=== PATIENT | male | born 1975 | race Caucasian/White ===

== ENCOUNTER → 2023-08-14 08:32 | Outpatient (REF) | payer MEDICARE, OTHER, SELFPAY ==
[2023-08-14 10:19] LABS: % Basophils 0.3 % (0-2); % Eosinophils 0.2 % (0-6); % Immature Granulocytes 0.2 % (0-0.5); % Lymphocytes 80.7 % (20.5-51.1); % Monocytes 1.1 % (1.7-9.3); % Neutrophils 17.5 % (42.2-75.2); Absolute Basophils 0.1 10^3/uL (0-0.2); Absolute Eosinophils 0.1 10^3/uL (0-0.7); Absolute Immature Granulocytes 0.1 10^3/uL (0-0.05); Absolute Lymphocytes 30.9 10^3/uL (1.2-3.4); Absolute Monocytes 0.4 10^3/uL (0.1-0.6); Absolute Neutrophils 6.7 10^3/uL (1.4-6.5); Hematocrit 42.9 % (39.0-52.0); Hemoglobin 14.1 g/dL (13.0-18.0); Mean Corp Hgb Conc. 32.9 g/dL (33.0-37.0); Mean Corpuscular Hgb 28.6 pg (27.0-31.0); Mean Platelet Volume 12.8 fL (7.4-10.4); Nucleated Red Blood Cells % 0 % (-); Platelet Count 183 10^3/uL (130-400); Red Blood Cell Count 4.93 10^6/uL (4.70-6.10); Red Cell Dist. Width 15.5 % (11.5-14.5); White Blood Cell Count 38.3 10^3/uL (4.8-10.8)
[2023-08-14 10:22] LABS: Urine Albumin Negative (Neg - Trace); Urine Bilirubin Negative (Negative); Urine Character Clear (Clear); Urine Color Yellow; Urine Glucose Negative (Negative); Urine Ketone Negative (Negative); Urine Leukocyte Negative (Negative); Urine Nitrite Negative (Negative); Urine Occult Blood 2+ (Negative); Urine Specific Gravity 1.005 (<1.030); Urine Urobilinogen Negative (Neg - 1+)
[2023-08-14 10:40] LABS: Urine Bacteria Few (Negative); Urine Red Blood Cell 0-2 /HPF (0-2); Urine Squamous Cell 0-2 /LPF (Few); Urine White Cell 0-2 /HPF (0-5)
[2023-08-14 11:32] LABS: Microalbumin, Random Urine <0.6 mg/dl (0.6-1.7)
[2023-08-14 11:58] LABS: Glycohemoglobin (HgbA1c) 5.8 % (4.0-5.6)
[2023-08-14 12:37] LABS: ALT (SGPT) 27 U/L (0-50); AST (SGOT) 19 U/L (17-59); Albumin 4.6 g/dl (3.5-5.0); Alkaline Phosphatase 98 U/L (38-126); Blood Urea Nitrogen 18 mg/dl (9-20); Calcium 9.9 mg/dl (8.4-10.2); Carbon Dioxide 25 mmol/L (22-30); Chloride 105 mmol/L (98-107); Glucose 107 mg/dl (70-99); HDL Cholesterol 39 mg/dl; LDL Cholesterol, Calculated 108 mg/dl; Potassium 4.5 mmol/L (3.5-5.1); Sodium 144 mmol/L (135-145); Total Bilirubin 0.5 mg/dl (0.2-1.3); Total Cholesterol 164 mg/dl (50-199); Total Protein 7.1 g/dl (6.3-8.2); Triglyceride 88 mg/dl (10-149); Very Low Density Lipoprotein 17 mg/dl (0-30); eGFR > 60.00
[2023-08-14 12:49] LABS: Free T4 1.35 ng/dl (0.78-2.19); Vitamin D, 25-OH*** 39.8 ng/mL (30-80)
[2023-08-14 13:20] LABS: TSH 2.05 uIU/ml (0.47-4.68)
== END ==
LOC: REG 08:32
PROVIDERS: ATTENDING PHYSICIAN Internal Medicine Hematology & Oncology; FAMILY PHYSICIAN Family Medicine
DX: C91.10 Chronic lymphocytic leukemia of B-cell type not having achieved remission (principal); D50.9 Iron deficiency anemia, unspecified; E03.9 Hypothyroidism, unspecified; E55.9 Vitamin D deficiency, unspecified; E11.40 Type 2 diabetes mellitus with diabetic neuropathy, unspecified; E11.42 Type 2 diabetes mellitus with diabetic polyneuropathy
CPT/HCPCS: 36415; 80053; 80061; 81003; 81015; 82043; 82306; 82570; 83036; 84439; 84443; 85025

== ENCOUNTER → 2023-08-24 15:47 | Outpatient (REF) | payer MEDICARE, OTHER, SELFPAY ==
[2023-08-24 19:49] LABS: Urine Albumin Negative (Neg - Trace); Urine Bilirubin Negative (Negative); Urine Character Clear (Clear); Urine Color Yellow; Urine Glucose Negative (Negative); Urine Ketone Negative (Negative); Urine Leukocyte Negative (Negative); Urine Nitrite Negative (Negative); Urine Occult Blood Negative (Negative); Urine Urobilinogen Negative (Neg - 1+)
== END ==
LOC: REG 15:47
PROVIDERS: ATTENDING PHYSICIAN Family Medicine
DX: R82.90 Unspecified abnormal findings in urine (principal)
CPT/HCPCS: 81003; 87086

== ENCOUNTER → 2023-10-12 10:29 | Outpatient (REF) | payer MEDICARE, OTHER, SELFPAY ==
[2023-10-12 18:45] LABS: Urine Albumin Negative (Neg - Trace); Urine Bilirubin Negative (Negative); Urine Character Clear (Clear); Urine Color Yellow; Urine Glucose Negative (Negative); Urine Ketone Negative (Negative); Urine Leukocyte Negative (Negative); Urine Nitrite Negative (Negative); Urine Occult Blood Negative (Negative); Urine Urobilinogen Negative (Neg - 1+); Urine pH 6.5 (5.0-9.0)
== END ==
LOC: CLAB 10:29
PROVIDERS: ATTENDING PHYSICIAN Nurse Practitioner Family
DX: R35.0 Frequency of micturition (principal)
CPT/HCPCS: 81003; 87086

== ENCOUNTER 2023-11-03 16:52 | Emergency (ER) | payer MEDICARE, OTHER, SELFPAY ==
[2023-11-03] VITALS (16 sets, daily range): BP systolic 110–133; BP diastolic 69–86
[2023-11-03 17:35] LABS: Hematocrit 32.6 % (39.0-52.0); Hemoglobin 10.3 g/dL (13.0-18.0); Mean Corp Hgb Conc. 31.6 g/dL (33.0-37.0); Mean Corpuscular Volume 88.6 fL (80.0-94.0); Mean Platelet Volume 11.3 fL (7.4-10.4); Platelet Count 327 10^3/uL (130-400); Red Blood Cell Count 3.68 10^6/uL (4.70-6.10); White Blood Cell Count 27.8 10^3/uL (4.8-10.8)
[2023-11-03 17:41] LABS: ALT (SGPT) 22 U/L (0-50); AST (SGOT) 16 U/L (17-59); Albumin 3.8 g/dl (3.5-5.0); Alkaline Phosphatase 131 U/L (38-126); Blood Urea Nitrogen 14 mg/dl (9-20); Calcium 9.4 mg/dl (8.4-10.2); Carbon Dioxide 26 mmol/L (22-30); Chloride 103 mmol/L (98-107); Glucose 116 mg/dl (70-99); Potassium 3.9 mmol/L (3.5-5.1); Sodium 137 mmol/L (135-145); Total Bilirubin 0.8 mg/dl (0.2-1.3); Total Protein 6.1 g/dl (6.3-8.2); eGFR > 60.00
--- NOTE | 2023-11-03 17:53 | ED.MUSCINJ ---
HPI-Injury
<Primitivo Mixon PA-C - Last Filed: 11/03/23 20:04>
General
Chief Complaint: Musculo-Skeletal Complaint
Source: patient
Exam Limitations: none
Time Seen by Provider: 11/03/23 17:44
History of Present Illness-Injury
Initial Injury comments:
48-year-old male with history of CLL presents with pain to the right hip. He felt a pop in his right hip today while sitting in the wheelchair. He thinks he dislocated his hip again. 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
He is due to see his orthopedic surgeon in 2 days. He denies pain without moving currently. No other complaints at this time
Past History
<Primitivo Mixon PA-C - Last Filed: 11/03/23 20:04>
Past History
ED Past Medical History: Cancer (Skin cancer, melanoma, CLL), NIDDM, Psychiatric (Schizophrenia, anxiety, ECT) and Other (Pneumothorax, CLL)
ED Past Surgical History: Other
Social History
Tobacco: Non-smoker
Alcohol: None
Employment: Disabled
Phy Exam
<PATRICIO Drummond Last Filed: 11/03/23 20:04>
Physical Exam
Physical Exam:
General: Chronically ill-appearing male no respiratory distress
HEENT: Normocephalic atraumatic
Musculoskeletal exam: Right leg is shortened and externally rotated
Neurologic: Alert and oriented no facial asymmetry
Injury Course
<PATRICIO Drummond Last Filed: 11/03/23 20:04>
Orders/Labs/Results
Orders:
Orders
11/03/23 17:00
Complete Blood Count/With Diff Urgent
Comprehensive Metabolic Panel Urgent
11/03/23 17:52
CR Hip - RT without Pel 1 Vw Urgent
Comment:
Reason For Exam: dislocation
11/03/23 18:33
Propofol [Diprivan] 20 ml .ROUTE .STK-MED
11/03/23 18:50
Hip, Right 1 View [CR Hip - RT without Pel 1 Vw] Urgent
Comment: portable
Reason For Exam: reduction
11/03/23 20:05
Mirtazapine [Remeron] 45 mg PO NOW STA
Abnormal Lab Results
11/03/23
17:00
WBC 27.8 H 10^3/uL
(4.8-10.8)
RBC 3.68 L 10^6/uL
(4.70-6.10)
Hgb 10.3 L g/dL
(13.0-18.0)
Hct 32.6 L %
(39.0-52.0)
MCHC 31.6 L g/dL
(33.0-37.0)
RDW 17.0 H %
(11.5-14.5)
MPV 11.3 H fL
(7.4-10.4)
Abs Immat Gran (auto) 0.1 H 10^3/uL
(0-0.05)
Absolute Neuts (auto) 7.9 H 10^3/uL
(1.4-6.5)
Absolute Lymphs (auto) 19.1 H 10^3/uL
(1.2-3.4)
Neutrophils % 28.4 L %
(42.2-75.2)
Lymphocytes % 68.9 H %
(20.5-51.1)
Glucose 116 H mg/dl
(70-99)
AST 16 L U/L
(17-59)
Alkaline Phosphatase 131 H U/L
(38-126)
Total Protein 6.1 L g/dl
(6.3-8.2)
11/03/23 17:00
11/03/23 17:00
<Ash Edwards MD - Last Filed: 11/03/23 23:13>
Orders/Labs/Results
Orders:
Orders
11/03/23 17:00
Complete Blood Count/With Diff Urgent
Comprehensive Metabolic Panel Urgent
11/03/23 17:52
CR Hip - RT without Pel 1 Vw Urgent
Comment:
Reason For Exam: dislocation
11/03/23 18:33
Propofol [Diprivan] 20 ml .ROUTE .STK-MED
11/03/23 18:50
Hip, Right 1 View [CR Hip - RT without Pel 1 Vw] Urgent
Comment: portable
Reason For Exam: reduction
11/03/23 20:05
Mirtazapine [Remeron] 45 mg PO NOW STA
Abnormal Lab Results
11/03/23
17:00
WBC 27.8 H 10^3/uL
(4.8-10.8)
RBC 3.68 L 10^6/uL
(4.70-6.10)
Hgb 10.3 L g/dL
(13.0-18.0)
Hct 32.6 L %
(39.0-52.0)
MCHC 31.6 L g/dL
(33.0-37.0)
RDW 17.0 H %
(11.5-14.5)
MPV 11.3 H fL
(7.4-10.4)
Abs Immat Gran (auto) 0.1 H 10^3/uL
(0-0.05)
Absolute Neuts (auto) 7.9 H 10^3/uL
(1.4-6.5)
Absolute Lymphs (auto) 19.1 H 10^3/uL
(1.2-3.4)
Neutrophils % 28.4 L %
(42.2-75.2)
Lymphocytes % 68.9 H %
(20.5-51.1)
Glucose 116 H mg/dl
(70-99)
AST 16 L U/L
(17-59)
Alkaline Phosphatase 131 H U/L
(38-126)
Total Protein 6.1 L g/dl
(6.3-8.2)
11/03/23 17:00
11/03/23 17:00
Procedures
<Primitivo Mixon PA-C - Last Filed: 11/03/23 20:04>
Moderate Sedation
ASA Risk Score: Class II
Chart and allergies reviewed: Yes
Consent for anesthesia obtained: Yes
Time out completed (validating right patient & procedure): Yes
Moderate Sedation Start Time(when first medication is given): 18:45
History of difficult intubation: No
Airway free of obstruction: Yes
Patient has a gag reflex: Yes
Patient is able to open mouth: Yes
Patient has no dentures: Yes
Patient has no loose teeth: Yes
Medication administered by Provider during Moderate Sedation: IV Propofol (mg)
Total dose administered: 100
Time drug administered: 18:45
Moderate Sedation Procedure End Time: 18:56
Comment: Sedation performed by emergency room attending, Tad Edwards.
<Primitivo Mixon PA-C - Last Filed: 11/03/23 20:04>
MDM/Problems Addressed
Differential Diagnosis Includes:
Right hip pain with deformity. Question fracture versus dislocation. X-rays pending.
<PATRICIO Drummond Last Filed: 11/03/23 20:04>
*Critical Care Note
Total Time (30-74mins, 75-104mins- exclusive of procedures): Not Applicable
<Primitivo Mixon PA-C - Last Filed: 11/03/23 20:04>
Update Note
Update Note:
initial x-rays confirm right hip dislocation as superior and lateral. Discussed findings with patient and mother in the room. Answered all questions. Written consent obtained for moderate sedation and closed reduction of the right hip
Sedation performed by emergency room attending and reduction performed by myself using longitudinal traction hip flexion and internal rotation.
Postreduction films confirm successful reduction. Patient placed in knee immobilizer and back into his hip abduction pillow
Patient recovered well from sedation and will be discharged back to rehab facility. He has an appointment with his surgeon in 2 days
ED Attending Note
<Primitivo Mixon PA-C - Last Filed: 11/03/23 20:04>
-
Portions of this chart may have been created with voice recognition software.� Occasional wrong word or��sound alike� substitutions may have occurred due to the inherent limitations of voice recognition software.
<Ash Edwards MD - Last Filed: 11/03/23 23:13>
ED Attending Note
Patient seen and examined by attending physician: Yes
ED Attending Note:
I have seen and evaluated the patient with a [id number] encounter. I have spoken to the advance practicer provider and involved in the medical history, the physical exam, medical decision making.
Evaluation and management service: agree unless noted differently below.
Results interpretation: agree unless noted differently below.
Focused HPI: 48-year-old male with history as documented presents to the emergency room for evaluation of right hip injury. He had a recent right hip replacement and has had multiple dislocations since. He has been staying in rehab. He was
wheeling a wheelchair and caught his leg on another chair and felt his right hip pop and had immediate pain. Brought to the emergency room for evaluation.
Physical exam: Vitals normal. Right hip is shortened and externally rotated. Trace edema on the ankle. Strong right DP pulse with good distal perfusion, motor and sensory function intact distally.
Medical Decision Making: X-ray shows prosthetic hip dislocation. Reduced under moderate sedation as documented in procedure note. Discharged back to rehab.
Discharge Plan
Departure
Patient Disposition: Acute Rehab Facility
Date of Disposition: 11/03/23
Time of Disposition: 20:03
Patient with high blood pressure during this ER visit?: No
Discharge Problem:
Dislocation, hip
Instructions: Muscle and Bone Pain (DC), MODERATE SEDATION ADULT
Prescriptions:
No Action
mirtazapine 15 MG tablet
15 mg PO HS
Haldol:
100 mg IM MONTHLY
Patient Comments:
EVERY 30 DAYS
metformin 500 MG tablet
500 mg PO DAILY
clonazepam 0.5 MG tablet
0.5 mg PO PRN PRN (Reason: ANXIETY)
cyanocobalamin (vitamin B-12) 1,000 MCG tablet
1,000 mcg PO DAILY
levothyroxine 88 MCG tablet
88 mcg PO DAILY AT 0700
venlafaxine 75 mg Tablet
75 mg PO DAILY
olanzapine 15 mg Tablet
15 mg PO HS
multivitamin Tablet
1 tab PO DAILY
ketorolac 10 mg tablet
10 mg PO Q6H PRN (Reason: pain) Qty: 20 0RF
oxycodone 5 mg tablet
5 mg PO Q4H PRN (Reason: pain) Qty: 20 0RF
Referrals:
Kelvin Brooke MD [Family Provider] -
Activity Restrictions/Additional Instructions:
Please follow-up with your surgeon as planned in 2 days. Wear the knee immobilizer. Return for worsening symptoms otherwise
Interventions
Interventions:
*General Assessment Last Done: 11/03/23 16:58
*Neglect/Abuse Screening Last Done: 11/03/23 16:58
*Nursing Disposition Last Done: 11/03/23 22:22
ED-Musculoskeletal Assessment Last Done: 11/03/23 17:06
Discharge Date and Time
Discharge Date/Time: 11/03/23 22:24
Print Language: PALESTINIAN
[2023-11-03 17:54] LABS: % Basophils 0.2 % (0-2); % Eosinophils 0.1 % (0-6); % Immature Granulocytes 0.3 % (0-0.5); % Lymphocytes 68.9 % (20.5-51.1); % Monocytes 2.1 % (1.7-9.3); % Neutrophils 28.4 % (42.2-75.2); Absolute Basophils 0.1 10^3/uL (0-0.2); Absolute Immature Granulocytes 0.1 10^3/uL (0-0.05); Absolute Lymphocytes 19.1 10^3/uL (1.2-3.4); Absolute Monocytes 0.6 10^3/uL (0.1-0.6); Absolute Neutrophils 7.9 10^3/uL (1.4-6.5); Nucleated Red Blood Cells % 0 % (-)
[2023-11-03] MEDS: REMERON 45 MG PO (20:24)
== END 2023-11-03 22:24 ==
LOC: EMR 16:52
PROVIDERS: EMERGENCY PHYSICIAN Emergency Medicine; FAMILY PHYSICIAN Internal Medicine
DX: T84.020A Dislocation of internal right hip prosthesis, initial encounter (principal); Y79.2 Prosthetic and other implants, materials and accessory orthopedic devices associated with adverse incidents; C91.10 Chronic lymphocytic leukemia of B-cell type not having achieved remission; E11.9 Type 2 diabetes mellitus without complications; F20.9 Schizophrenia, unspecified; F41.9 Anxiety disorder, unspecified; Z85.820 Personal history of malignant melanoma of skin; Z85.828 Personal history of other malignant neoplasm of skin
CPT/HCPCS: 99283; 27266; 73501; 80053; 85025

== ENCOUNTER → 2024-02-19 08:43 | Outpatient (REF) | payer MEDICARE, OTHER, SELFPAY ==
[2024-02-19 09:41] LABS: Urine Albumin Negative (Neg - Trace); Urine Bilirubin Negative (Negative); Urine Character Clear (Clear); Urine Color Straw; Urine Glucose Negative (Negative); Urine Ketone Negative (Negative); Urine Leukocyte Negative (Negative); Urine Nitrite Negative (Negative); Urine Occult Blood Negative (Negative); Urine Specific Gravity 1.005 (<1.030); Urine Urobilinogen Negative (Neg - 1+)
[2024-02-19 10:00] LABS: Hematocrit 43.8 % (39.0-52.0); Hemoglobin 13.5 g/dL (13.0-18.0); Mean Corp Hgb Conc. 30.8 g/dL (33.0-37.0); Mean Corpuscular Hgb 26.2 pg (27.0-31.0); Mean Corpuscular Volume 84.9 fL (80.0-94.0); Mean Platelet Volume 11.3 fL (7.4-10.4); Platelet Count 167 10^3/uL (130-400); Red Blood Cell Count 5.16 10^6/uL (4.70-6.10); Red Cell Dist. Width 17.9 % (11.5-14.5)
[2024-02-19 10:04] LABS: ALT (SGPT) 24 U/L (0-50); AST (SGOT) 16 U/L (17-59); Albumin 4.5 g/dl (3.5-5.0); Alkaline Phosphatase 93 U/L (38-126); Blood Urea Nitrogen 17 mg/dl (9-20); Calcium 9.6 mg/dl (8.4-10.2); Carbon Dioxide 30 mmol/L (22-30); Chloride 104 mmol/L (98-107); Glucose 103 mg/dl (70-99); Glycohemoglobin (HgbA1c) 5.8 % (4.0-5.6); HDL Cholesterol 42 mg/dl; LDH 155 U/L (120-246); LDL Cholesterol, Calculated 108 mg/dl; Potassium 4.6 mmol/L (3.5-5.1); Sodium 143 mmol/L (135-145); Total Bilirubin 0.4 mg/dl (0.2-1.3); Total Cholesterol 167 mg/dl (50-199); Total Protein 6.8 g/dl (6.3-8.2); Triglyceride 88 mg/dl (10-149); Very Low Density Lipoprotein 17 mg/dl (0-30); eGFR > 60.00
[2024-02-19 10:36] LABS: TSH Reflex To Free T4 1.88 uIU/ml (0.47-4.68)
[2024-02-19 10:50] LABS: Microalbumin, Random Urine <0.6 mg/dl (0.6-1.7)
[2024-02-19 11:14] LABS: % Basophils 0.3 % (0-2); % Eosinophils 0.2 % (0-6); % Immature Granulocytes 0.2 % (0-0.5); % Lymphocytes 73.9 % (20.5-51.1); % Monocytes 1.4 % (1.7-9.3); Absolute Basophils 0.1 10^3/uL (0-0.2); Absolute Eosinophils 0.1 10^3/uL (0-0.7); Absolute Immature Granulocytes 0.1 10^3/uL (0-0.05); Absolute Lymphocytes 15.5 10^3/uL (1.2-3.4); Absolute Monocytes 0.3 10^3/uL (0.1-0.6); Nucleated Red Blood Cells % 0 % (-)
[2024-02-21 00:15] LABS: IgG 789 mg/dl (700-1600)
== END ==
LOC: REG 08:43
PROVIDERS: ATTENDING PHYSICIAN Internal Medicine Hematology & Oncology; FAMILY PHYSICIAN Dermatology; OTHER PHYSICIAN Registered Nurse; REFERRING PHYSICIAN Family Medicine
DX: Z79.899 Other long term (current) drug therapy (principal); E78.5 Hyperlipidemia, unspecified; Z04.6 Encounter for general psychiatric examination, requested by authority; Z13.29 Encounter for screening for other suspected endocrine disorder; R73.09 Other abnormal glucose; Z85.820 Personal history of malignant melanoma of skin; C91.10 Chronic lymphocytic leukemia of B-cell type not having achieved remission; D50.9 Iron deficiency anemia, unspecified; E03.9 Hypothyroidism, unspecified; F20.9 Schizophrenia, unspecified; E11.69 Type 2 diabetes mellitus with other specified complication
CPT/HCPCS: 36415; 80053; 80061; 81003; 82043; 82570; 82784; 83036; 83615; 84443; 85025

== ENCOUNTER → 2024-08-07 08:30 | Outpatient (REF) | payer MEDICARE, OTHER, SELFPAY ==
[2024-08-07 10:12] LABS: Glycohemoglobin (HgbA1c) 5.7 % (4.0-5.6)
[2024-08-07 10:44] LABS: Microalbumin, Random Urine <0.6 mg/dl (0.6-1.7)
[2024-08-07 10:47] LABS: ALT (SGPT) 27 U/L (0-50); AST (SGOT) 16 U/L (17-59); Albumin 4.6 g/dl (3.5-5.0); Alkaline Phosphatase 88 U/L (38-126); Blood Urea Nitrogen 18 mg/dl (9-20); Calcium 9.6 mg/dl (8.4-10.2); Carbon Dioxide 27 mmol/L (22-30); Chloride 110 mmol/L (98-107); Glucose 135 mg/dl (70-99); HDL Cholesterol 37 mg/dl; LDL Cholesterol, Calculated 103 mg/dl; Potassium 4.2 mmol/L (3.5-5.1); Sodium 144 mmol/L (135-145); Total Bilirubin 0.6 mg/dl (0.2-1.3); Total Cholesterol 155 mg/dl (50-199); Triglyceride 79 mg/dl (10-149); Very Low Density Lipoprotein 15 mg/dl (0-30); eGFR > 60.00
[2024-08-07 10:57] LABS: Vitamin D, 25-OH*** 58.5 ng/mL (30-80)
[2024-08-07 11:10] LABS: TSH 1.41 uIU/ml (0.47-4.68)
== END ==
LOC: REG 08:30
PROVIDERS: ATTENDING PHYSICIAN Family Medicine
DX: E03.9 Hypothyroidism, unspecified (principal); C91.10 Chronic lymphocytic leukemia of B-cell type not having achieved remission; F20.9 Schizophrenia, unspecified; E11.69 Type 2 diabetes mellitus with other specified complication; F33.0 Major depressive disorder, recurrent, mild; E11.610 Type 2 diabetes mellitus with diabetic neuropathic arthropathy; E11.40 Type 2 diabetes mellitus with diabetic neuropathy, unspecified; E55.9 Vitamin D deficiency, unspecified; M14.60 Charcot's joint, unspecified site; G47.33 Obstructive sleep apnea (adult) (pediatric); Z99.89 Dependence on other enabling machines and devices; E78.5 Hyperlipidemia, unspecified
CPT/HCPCS: 36415; 80053; 80061; 82043; 82306; 82570; 83036; 84443

== ENCOUNTER → 2024-08-12 11:35 | Outpatient (REF) | payer MEDICARE, OTHER, SELFPAY | LOC: RAD 11:35 | PROVIDERS: ATTENDING PHYSICIAN Internal Medicine Infectious Disease; FAMILY PHYSICIAN Family Medicine | DX: M86.071 Acute hematogenous osteomyelitis, right ankle and foot (principal) | CPT/HCPCS: 73620 ==

== ENCOUNTER → 2024-08-27 10:21 | Outpatient (REF) | payer MEDICARE, OTHER, SELFPAY ==
[2024-08-27 12:20] LABS: Iron 58 ug/dl (49-181)
[2024-08-27 12:29] LABS: Percent Saturation 18 % (20-50); Total Iron Binding Capacity 312 ug/dl (261-462)
[2024-08-27 12:42] LABS: % Basophils 0.2 % (0-2); % Eosinophils 0.1 % (0-6); % Immature Granulocytes 0.2 % (0-0.5); % Lymphocytes 72.3 % (20.5-51.1); % Monocytes 1.4 % (1.7-9.3); % Neutrophils 25.8 % (42.2-75.2); Absolute Basophils 0.1 10^3/uL (0-0.2); Absolute Immature Granulocytes 0.1 10^3/uL (0-0.05); Absolute Lymphocytes 19.7 10^3/uL (1.2-3.4); Absolute Monocytes 0.4 10^3/uL (0.1-0.6); Mean Corp Hgb Conc. 32.6 g/dL (33.0-37.0); Mean Corpuscular Hgb 28.2 pg (27.0-31.0); Mean Corpuscular Volume 86.5 fL (80.0-94.0); Mean Platelet Volume 12.4 fL (7.4-10.4); Nucleated Red Blood Cells % 0 % (-); Platelet Count 175 10^3/uL (130-400); Red Blood Cell Count 4.97 10^6/uL (4.70-6.10); Red Cell Dist. Width 15.7 % (11.5-14.5); White Blood Cell Count 27.2 10^3/uL (4.8-10.8)
[2024-08-27 13:36] LABS: Ferritin 79.6 ng/ml (17.9-464.0)
[2024-08-27 13:51] LABS: Vitamin B12 > 1000 pg/ml (239-931)
[2024-08-27 15:04] LABS: Folate > 20.0 ng/ml (2.76-20)
== END ==
LOC: REG 10:21
PROVIDERS: ATTENDING PHYSICIAN Internal Medicine Hematology & Oncology; FAMILY PHYSICIAN Family Medicine
DX: C91.10 Chronic lymphocytic leukemia of B-cell type not having achieved remission (principal); D50.9 Iron deficiency anemia, unspecified; D51.9 Vitamin B12 deficiency anemia, unspecified; D51.0 Vitamin B12 deficiency anemia due to intrinsic factor deficiency
CPT/HCPCS: 36415; 82607; 82728; 82746; 83540; 83550; 85025

== ENCOUNTER 2024-10-13 13:22 | Outpatient (RCR) | payer MEDICARE, OTHER, SELFPAY | END 2024-10-13 23:59 | disposition home or self-care (01) | LOC: RPT 13:22 | PROVIDERS: ATTENDING PHYSICIAN Orthopaedic Surgery; FAMILY PHYSICIAN Family Medicine | DX: M16.11 Unilateral primary osteoarthritis, right hip (principal); Z73.6 Limitation of activities due to disability | CPT/HCPCS: 97110; 97112; 97163; 97530 ==

== ENCOUNTER 2024-10-30 10:57 | Outpatient (RCR) | payer MEDICARE, OTHER, SELFPAY | END 2024-10-30 23:59 | disposition home or self-care (01) | LOC: RPT 10:57 | PROVIDERS: ATTENDING PHYSICIAN Orthopaedic Surgery; FAMILY PHYSICIAN Family Medicine | DX: M16.11 Unilateral primary osteoarthritis, right hip (principal); Z73.6 Limitation of activities due to disability; R26.89 Other abnormalities of gait and mobility; Z96.641 Presence of right artificial hip joint; Z85.6 Personal history of leukemia | CPT/HCPCS: 97110; 97112; 97530 ==

== ENCOUNTER 2024-11-27 12:04 | Outpatient (RCR) | payer MEDICARE, OTHER, SELFPAY | END 2024-12-02 11:22 | disposition home or self-care (01) | LOC: RPT 12:04 | PROVIDERS: ATTENDING PHYSICIAN Orthopaedic Surgery; FAMILY PHYSICIAN Family Medicine | DX: M16.11 Unilateral primary osteoarthritis, right hip (principal); Z73.6 Limitation of activities due to disability; R26.89 Other abnormalities of gait and mobility; Z96.641 Presence of right artificial hip joint; Z85.6 Personal history of leukemia | CPT/HCPCS: 97110; 97112 ==

== ENCOUNTER → 2025-01-14 08:33 | Outpatient (REF) | payer MEDICARE, OTHER, SELFPAY ==
[2025-01-14 09:48] LABS: Hematocrit 43.9 % (39.0-52.0); Hemoglobin 13.7 g/dL (13.0-18.0); Mean Corp Hgb Conc. 31.2 g/dL (33.0-37.0); Mean Corpuscular Volume 90.1 fL (80.0-94.0); Nucleated Red Blood Cells % 0 % (-); Platelet Count 178 10^3/uL (130-400); Red Cell Dist. Width 14.9 % (11.5-14.5)
[2025-01-14 09:52] LABS: Glycohemoglobin (HgbA1c) 5.7 % (4.0-5.9)
[2025-01-14 09:56] LABS: ALT (SGPT) 32 U/L (0-50); AST (SGOT) 16 U/L (17-59); Albumin 4.6 g/dl (3.5-5.0); Alkaline Phosphatase 86 U/L (38-126); Blood Urea Nitrogen 17 mg/dl (9-20); Calcium 9.5 mg/dl (8.4-10.2); Carbon Dioxide 27 mmol/L (22-30); Chloride 106 mmol/L (98-107); Glucose 129 mg/dl (70-99); HDL Cholesterol 42 mg/dl; Iron 92 ug/dl (49-181); LDH 156 U/L (120-246); LDL Cholesterol, Calculated 112 mg/dl; Potassium 4.1 mmol/L (3.5-5.1); Sodium 139 mmol/L (135-145); Total Protein 7.1 g/dl (6.3-8.2); Very Low Density Lipoprotein 12 mg/dl (0-30); eGFR > 60.00
[2025-01-14 09:59] LABS: Microalb - Urine Creatinine 141.200 mg/dl
[2025-01-14 10:04] LABS: Microalbumin, Random Urine 1.0 mg/dl (0.6-1.7)
[2025-01-14 10:07] LABS: Total Iron Binding Capacity 330 ug/dl (261-462)
[2025-01-14 10:08] LABS: Vitamin D, 25-OH*** 53.5 ng/mL (30-80)
[2025-01-14 10:22] LABS: TSH 1.37 uIU/ml (0.47-4.68)
[2025-01-14 10:26] LABS: Ferritin 81.3 ng/ml (17.9-464.0)
[2025-01-14 10:58] LABS: Folate > 20.0 ng/ml (2.76-20); Vitamin B12 > 1000 pg/ml (239-931)
== END ==
LOC: REG 08:33
PROVIDERS: ATTENDING PHYSICIAN Internal Medicine Hematology & Oncology; FAMILY PHYSICIAN Family Medicine; REFERRING PHYSICIAN Dermatology
DX: Z85.820 Personal history of malignant melanoma of skin (principal); C91.10 Chronic lymphocytic leukemia of B-cell type not having achieved remission; D50.9 Iron deficiency anemia, unspecified; E03.9 Hypothyroidism, unspecified; F20.9 Schizophrenia, unspecified; E11.69 Type 2 diabetes mellitus with other specified complication; F33.0 Major depressive disorder, recurrent, mild; E11.610 Type 2 diabetes mellitus with diabetic neuropathic arthropathy; E11.40 Type 2 diabetes mellitus with diabetic neuropathy, unspecified; E55.9 Vitamin D deficiency, unspecified; M14.60 Charcot's joint, unspecified site; G47.33 Obstructive sleep apnea (adult) (pediatric); Z99.89 Dependence on other enabling machines and devices; E78.5 Hyperlipidemia, unspecified; Z79.899 Other long term (current) drug therapy
CPT/HCPCS: 36415; 80053; 80061; 82043; 82306; 82570; 82607; 82728; 82746; 82784; 83036; 83540; 83550; 83615; 84443; 85025